=== PATIENT | female | born 1975 | race Caucasian/White ===

== ENCOUNTER → 2021-02-21 14:46 | Outpatient (BNVA) | payer OTHER, SELFPAY | PROVIDERS: PCP Internal Medicine; Referring Provider Internal Medicine; Visit Provider Surgery | DX: K64.5 Perianal venous thrombosis (principal) | CPT/HCPCS: 46600 ==

== ENCOUNTER 2021-02-22 08:11 | Outpatient (REF) | payer OTHER, SELFPAY ==
--- NOTE | ~2021-02-22 | MM_ITS ---
EXAMINATION: MM SCREENING DIGITAL BREAST TOMOSYNTHESIS, BILATERAL CLINICAL INFORMATION: Screening. Asymptomatic. The lifetime risk of breast cancer based on the Tyrer-Cuzick Model is 7%. COMPARISON: Mammography: 03/31/2019, 02/26/2016 TECHNIQUE: Digital breast tomosynthesis is performed in both the craniocaudal and mediolateral oblique views along with computer-aided detection (CAD). Synthesized 2D images are generated from the tomosynthesis. FINDINGS: The breasts are heterogeneously dense, which may obscure small masses (ACR BI-RADS breast composition Category c). There are no significant masses, abnormal calcifications, or other abnormalities. Parenchymal pattern is similar to prior studies. No significant changes. MM/MM tomosynthesis screening BI IMPRESSION: No mammographic evidence of malignancy. ASSESSMENT: BI-RADS 1: Negative RECOMMENDATION: Routine annual mammography screening. This patient's information was entered into a reminder system with a target due date for their next mammogram.
== END 2021-02-22 08:12 | disposition home or self-care (01) ==
LOC: HO.MAMMO 08:11
PROVIDERS: PCP Internal Medicine; Visit Provider Internal Medicine
DX: Z12.31 Encounter for screening mammogram for malignant neoplasm of breast (principal)
CPT/HCPCS: 77063; 77067

== ENCOUNTER 2021-12-26 11:21 | Outpatient (REF) | payer OTHER, SELFPAY ==
[2021-12-26 13:41] LABS: MANUAL DIFF FLAG NO
[2021-12-26 13:53] LABS: Basophils Percent Auto 0.4 % (0-2); Eosinophils Absolute Auto 0.2 X10*3/uL (0.0-0.4); Eosinophils Percent Auto 1.7 % (0-4); Hematocrit 42.3 % (37.0-47.0); Hemoglobin 14.6 g/dl (12.0-16.0); Imm Gran Abs Auto 0.06 X10*3/uL (0.00-0.03); Imm Gran Pct Auto 0.6 % (0.0-0.4); Lymphocytes Absolute Auto 2.4 X10*3/uL (1.2-4.9); Lymphocytes Percent Auto 24.7 % (20-40); Mean Corpuscular HGB Conc 34.5 g/dl (31.0-35.0); Mean Corpuscular Hemoglobin 33.7 pg (27.0-33.0); Mean Corpuscular Volume 97.7 fL (80.0-98.0); Mean Platelet Volume 9.5 fL (9.4-12.3); Monocytes Absolute Auto 0.9 X10*3/uL (0.1-1.2); Monocytes Percent Auto 8.9 % (2-11); Neutrophils Absolute Auto 6.3 x10*3/uL (2.0-8.3); Neutrophils Percent Auto 63.7 % (45-73); Platelet Count 369 X10*3/uL (160-400); Red Blood Count 4.33 X10*6/uL (4.20-5.50); Red Cell Distribution Width 11.5 % (11.0-16.0); White Blood Count 9.9 X10*3/uL (4.8-10.8)
[2021-12-26 14:10] LABS: Alanine Aminotransferase 15 U/L (0-31); Albumin Level 4.3 g/dL (3.5-5.0); Alkaline Phosphatase 58 U/L (39-117); Anion Gap 11 (12-20); Aspartate Amino Transferase 20 U/L (5-31); Bilirubin Total 0.4 mg/dL (0.0-1.0); Blood Urea Nitrogen 12 mg/dL (9-16); Calcium 9.4 mg/dL (8.4-10.2); Carbon Dioxide 28 mmol/L (22-29); Chloride 104 mmol/L (96-108); Estimated Glomerular Filt Rate > 60; Glucose Random 74 mg/dL (60-115); Potassium 4.4 mmol/L (3.3-5.1); Sodium 139 mmol/L (135-145); Total Protein 6.9 g/dL (6.5-8.0)
[2021-12-26 14:22] LABS: TSH reflex Free T4 0.68 uIU/mL (0.32-4.0)
[2021-12-28 06:27] LABS: LDL Cholesterol Direct 54 mg/dL (<100)
== END 2021-12-26 11:22 | disposition home or self-care (01) ==
LOC: HO.HMGCLDS 11:21
PROVIDERS: PCP Internal Medicine; Visit Provider Internal Medicine
DX: Z00.01 Encounter for general adult medical examination with abnormal findings (principal); J45.909 Unspecified asthma, uncomplicated; Z91.09 Other allergy status, other than to drugs and biological substances
CPT/HCPCS: 36415; 80053; 83721; 84443; 85025

== ENCOUNTER 2022-06-04 11:20 | Outpatient (REF) | payer OTHER, SELFPAY ==
--- NOTE | ~2022-06-04 | MM_ITS ---
EXAMINATION: MM SCREENING DIGITAL BREAST TOMOSYNTHESIS, BILATERAL CLINICAL INFORMATION: Screening. Asymptomatic. The lifetime risk of breast cancer based on the Tyrer-Cuzick Model is 7%. COMPARISON: Mammography: 02/22/2021, 03/31/2019 TECHNIQUE: Digital breast tomosynthesis is performed in both the craniocaudal and mediolateral oblique views along with computer-aided detection (CAD). Synthesized 2D images are generated from the tomosynthesis. FINDINGS: The breasts are heterogeneously dense, which may obscure small masses (ACR BI-RADS breast composition Category c). There are no significant masses, abnormal calcifications, or other abnormalities. No developing density or architectural abnormality. Parenchymal pattern is similar to prior studies. The axilla are unremarkable. MM/MM tomosynthesis screening BI IMPRESSION: No mammographic evidence of malignancy. ASSESSMENT: BI-RADS 1: Negative RECOMMENDATION: Routine annual mammography screening. This patient's information was entered into a reminder system with a target due date for their next mammogram.
== END 2022-06-04 11:21 | disposition home or self-care (01) ==
LOC: HO.MAMMO 11:20
PROVIDERS: Visit Provider Internal Medicine
DX: Z12.31 Encounter for screening mammogram for malignant neoplasm of breast (principal)
CPT/HCPCS: 77063; 77067

== ENCOUNTER 2022-07-29 09:07 | Outpatient (REF) | payer OTHER, SELFPAY ==
[2022-07-31 06:23] LABS: HPV mRNA E6/E7 rflx Not Detected (Not Detected)
== END 2022-07-29 09:08 | disposition home or self-care (01) ==
LOC: HO.LNP 09:07
PROVIDERS: PCP Internal Medicine; Visit Provider Advanced Practice Midwife
DX: Z01.419 Encounter for gynecological examination (general) (routine) without abnormal findings (principal); Z79.899 Other long term (current) drug therapy
CPT/HCPCS: 87624; 88142

== ENCOUNTER → 2022-08-14 13:17 | Outpatient (BNVA) | payer OTHER, SELFPAY | PROVIDERS: PCP Internal Medicine; Visit Provider Surgery | DX: Z13.89 Encounter for screening for other disorder (principal) ==

== ENCOUNTER 2024-01-21 10:33 | Outpatient (AMB) | payer OTHER, SELFPAY ==
[2024-01-21 10:35] VITALS: BP 106/70; PULSE 77; O2SAT 100; BMI 22.5
--- NOTE | 2024-01-21 10:35 | A.OFFPC_ITS ---
Vital Signs 01/21/24 10:35 Height 4 ft 11 in Weight 111 lb 4 oz BMI 22.5 BP 106/70 Blood Pressure Location Rt brachial Position Sitting Pulse 77 Pulse Source Pulse Oximeter Pulse Oximetry (%) 100 Oxygen Delivery Method Room Air Intake Visit Reasons: annual PE Allergies acetaminophen [From Vicodin] Allergy (Unknown, Verified 01/21/24 10:36) Stomach Upset environmental allergies Allergy (Unknown, Verified 01/21/24 10:36) Unknown hydrocodone [From Vicodin] Allergy (Unknown, Verified 01/21/24 10:36) Stomach Upset Medication List - Last Reconciled 01/21/24 by Otilio Montgomery MD albuterol sulfate 2.5 mg (3 mL) inhalation TID PRN 90 days albuterol sulfate 90 mcg/actuation 2 puffs inhalation .Q4 PRN 90 days cholecalciferol (vitamin D3) 25 mcg PO DAILY 90 days fexofenadine 180 mg PO DAILY 90 days Tobacco use date assessed: 01/21/24 Dental Screening Dental Screen Date: 01/21/24 Did you have a dental visit in the last 12 months?: Yes Did you have a dental problem in the last 6 months where you did not have access to dental care?: No Was dental information given to patient?: Patient has dentist HPI annual PE HPI Details Patient is a 48-year-old female came in today for physical examination Mammogram will be due May of this year Patient is established with [facility] Colonoscopy declined at this time, patient says that she will think about it. Lab order placed to be done fasting She offer no other complaints today Vital signs stable Allergies are stable She will return next year physical exam. [facility] Medical History Thrombosed external hemorrhoid Environmental allergies Vitamin D deficiency Asthma, moderate Surgical History History of cyst of breast History of bilateral tubal ligation History of section Family History Father Unknown family medical history Mother Diabetes mellitus Alcohol drinking problem Maternal Grandfather Unknown family medical history Maternal Grandmother No problems noted. Paternal Grandfather Unknown family medical history Paternal Grandmother Unknown family medical history Son No problems noted. Son No problems noted. Daughter No problems noted. Social History Housing: Condominium Alcohol intake: current Alcohol intake frequency: 0-2 drinks per day Patient Tobacco Use Status: Former Tobacco user e-Cigarette/Vaping Use: Never Used Second Hand Smoke Exposure: No service: No Current occupational status: employed Cognitive needs: No Hearing needs: No Vision needs: Yes Questionnaire PHQ-9 Over the last 2 weeks, how often have you been bothered by any of the following problems? 1. Little interest or pleasure in doing things: not at all 2. Feeling down, depressed, or hopeless: not at all 3. Trouble falling or staying asleep, or sleeping too much: not at all 4. Feeling tired or having little energy: not at all 5. Poor appetite or overeating: not at all 6. Feeling bad about yourself - or that you are a failure or have let yourself or your family down: not at all 7. Trouble concentrating on things, such as reading the newspaper or watching television: not at all 8. Moving or speaking so slowly that other people could have noticed. Or the opposite - being so fidgety or restless that you have been moving around a lot more than usual: not at all 9. Thoughts that you would be better off or of hurting yourself in some way: not at all Total score: 0 Depression Screening Interpretation: Negative Depression Screening Done: Yes 13470 - PHQ-9 Billing: Yes Source: Developed by Drs. Wayne Earl, Courtney Nunez, Fransisco Harrell and colleagues, with an educational klarissa from [employer]. Thrive Questionnaire Date Thrive assessed: 01/21/24 I am a: Patient What is your living situation today?: I have a steady place to live Within the past 12 months, did the food you bought not last and you didn't have the money to get more?: Never true Within the past 12 months, did you worry whether your food would run out before you got money to buy more?: Never true Do you have trouble paying for medicines?: No Do you have trouble getting transportation to medical appointments?: No Do you have trouble paying your heating and electricity bill?: No Do you have trouble taking care of your child, family member or friend?: No Do you have trouble with day-to-day activities such as bathing, preparing meals, shopping, managing finances, etc.?: No Are you currently unemployed and looking for a job?: No Are you interested in more education?: No Please select the resources that you would like help with: None Currently or been in a relationship where the following occur: No concerns reported THRIVE Score: 0 AUDIT C Alcohol Use Questionnaire (AUDIT-C) 1. How often do you have a drink containing alcohol?: 2-3 times a week 2. How many drinks containing alcohol do you have on a typical day when you are drinking?: 1 or 2 3. How often do you have six or more drinks on one occasion?: Never Total Score: 3 Score Reviewed/Action Taken: Yes YUMI-7 AMB Questionnaire YUMI-7 Date YUMI - 7 assessed: 01/21/24 Feeling nervous, anxious, or on edge: 0 = Not at all Not being able to stop or control worryin = Not at all Worrying too much about different things: 0 = Not at all Trouble relaxin = Not at all Being so restless that it is hard to sit still: 0 = Not at all Becoming easily annoyed or irritable: 0 = Not at all Feeling afraid as if something awful might happen: 0 = Not at all Total YUMI-7 score (0-4 normal; 5-9 mild; 10-14 moderate; 15-21 severe): 0 Source: Developed by Drs. Wayne Earl, Courtney Nunez, Fransisco Harrell and colleagues, with an educational klarissa from [employer]. YUMI-7 Assessment Billing YUMI-7 Assessment Tool: YUMI-7 Assessment 23047 Review of Systems Const Denies chills, Denies fever(s) and Denies headache(s) Eyes Denies blurry vision ENT Denies headache(s), Denies nasal discharge, Denies nasal obstruction, Denies odynophagia and Denies sinus pain Card Denies chest pain at rest and Denies chest pain with activity Resp Denies cough and Denies hemoptysis GI Denies diarrhea, Denies odynophagia, Denies vomiting and Denies hematemesis Reports as per HPI Musc Denies abnormal gait Skin/Breast Reports as per HPI Neuro Denies Neuro-related abnormal movements, Denies Abnormal speech present, Denies abnormal gait, Denies headache(s) and Denies Sensory deficit (Neuro) Psych Denies mood swings and Denies paranoia Endo Reports as per HPI Robert/Lymph Reports as per HPI Aller/Immun Reports as per HPI Physical exam (Primary Care) Vital Signs: Last Vital Signs Pulse 77 01/21/24 10:35 BP 106/70 01/21/24 10:35 Pulse Ox 100 01/21/24 10:35 Oxygen Delivery Method Room Air 01/21/24 10:35 BMI result Body Mass Index 22.5 Tobacco/Smoking Status: Tobacco use Status Tobacco use date assessed 01/21/24 01/21/24 10:38 Patient Tobacco Use Status Former Tobacco user 01/21/24 10:38 e-Cigarette/Vaping Use Never Used 01/21/24 10:38 PHQ-9: PHQ-9 Score PHQ-9: Total score 0 01/21/24 10:41 Depression Screening Interpretation: Negative Thrive Assessment: Date of Thrive Assessment Date Thrive assessed 01/21/24 01/21/24 10:41 Currently or been in a relationship where the following occur: No concerns reported Const General: cooperative, comfortable and no acute distress Orientation/consciousness: patient oriented x3 HENMT Head: Yes normocephalic and Yes atraumatic Eyes General: appearance normal, both eyes and all related structures Pupils: Equal, round and reactive pupils present EOM: EOMs intact bilaterally Neck Neck: Yes supple and No lymphadenopathy Thyroid: Thyroid normal Lymphatic: no lymphadenopathy noted Resp Effort & Inspection: normal respiratory effort and able to speak in complete sentences Auscultation: clear to auscultation bilaterally Cardio Heart sounds: S1 normal heart sound present and S2 normal heart sound present GI Palpation (GI): Soft to palpation and nontender Auscultation: normal bowel sounds General: Yes no CVA tenderness Back/Spine/Pelvis Back: no CVA tenderness Skin General skin exam: elasticity normal and turgor normal Neuro General: patient oriented x3 and gait normal Cranial nerves: Yes Equal, round and reactive pupils present Speech: No Abnormal speech present Sensory Exam: No Sensory deficit (Neuro) Coordination: tandem gait normal and Romberg test negative Extrem General: Yes normal exam except as noted and No edema Assessment and Plan Assessment & Plan (1) Encounter for general adult medical examination without abnormal findings: Code(s): Z00.00 - Encounter for general adult medical examination without abnormal findings (2) Asthma, moderate: Code(s): J45.909 - Unspecified asthma, uncomplicated Qualifiers: Asthma complication type: uncomplicated Asthma persistence: unspecified Qualified Code(s): J45.909 - Unspecified asthma, uncomplicated (3) Vitamin D deficiency: Code(s): E55.9 - Vitamin D deficiency, unspecified (4) Environmental allergies: Code(s): Z91.09 - Other allergy status, other than to drugs and biological substances (5) External hemorrhoids: Code(s): K64.4 - Residual hemorrhoidal skin tags Plan Patient is a 48-year-old female came in today for physical examination Mammogram will be due May of this year Patient is established with [facility] Colonoscopy declined at this time, patient says that she will think about it. Lab order placed to be done fasting She offer no other complaints today Vital signs stable Allergies are stable She will return next year physical exam. Orders: Orders TSH reflex Free T4 Today E55.9 - Vitamin D deficiency, unspecified, J45.909 - Unspecified asthma, uncomplicated, K64.4 - Residual hemorrhoidal skin tags, Z00.00 - Encounter for general adult medical examination without abnormal findings, Z91.09 - Other allergy status, other than to drugs and biological sub stances Complete Blood Count Auto Diff Today E55.9 - Vitamin D deficiency, unspecified, J45.909 - Unspecified asthma, uncomplicated, K64.4 - Residual hemorrhoidal skin tags, Z00.00 - Encounter for general adult medical examination without abnormal findings, Z91.09 - Other allergy status, other than to drugs and biological substances Comprehensive [place]. Panel Fast Today E55.9 - Vitamin D deficiency, unspecified, J45.909 - Unspecified asthma, uncomplicated, K64.4 - Residual hemorrhoidal skin tags, Z00.00 - Encounter for general adult medical examination without abnormal findings, Z91.09 - Other allergy status, other than to drugs and biological substances Lipid Panel Today E55.9 - Vitamin D deficiency, unspecified, J45.909 - Unspecified asthma, uncomplicated, K64.4 - Residual hemorrhoidal skin tags, Z00.00 - Encounter for general adult medical examination without abnormal findings, Z91.09 - Other allergy status, other than to drugs and biological substances Coding Level of Care Code Est Pt Prev Care 40-64y(86686) Diagnoses Encounter for general adult medical examination without abnormal findings Z00.00 Moderate asthma without complication, unspecified whether persistent J45.909 Asthma complication type: uncomplicated Asthma persistence: unspecified Vitamin D deficiency E55.9 Environmental allergies Z91.09 External hemorrhoids K64.4 Additional Codes YUMI-7 Assessment Billing - YUMI-7 Assessment Tool: YUMI-7 Assessment 90623 ([id number])
== END 2024-01-21 11:03 | disposition home or self-care (01) ==
PROVIDERS: PCP Internal Medicine; Visit Provider Internal Medicine
DX: Z00.00 Encounter for general adult medical examination without abnormal findings (principal); J45.909 Unspecified asthma, uncomplicated; E55.9 Vitamin D deficiency, unspecified; Z91.09 Other allergy status, other than to drugs and biological substances; K64.4 Residual hemorrhoidal skin tags
CPT/HCPCS: 99396

== ENCOUNTER 2025-05-26 20:59 | Emergency (ER) | payer OTHER, SELFPAY ==
[2025-05-26 21:20] VITALS: BP 180/94; PULSE 76; RESP 16; TEMP 36.8; O2SAT 96; BMI 22.6
[2025-05-27 00:05] VITALS: BP 145/83; PULSE 72; RESP 18; TEMP 36.6; O2SAT 97
--- NOTE | 2025-05-27 00:55 | ED_ITS ---
HPI - General Adult General Chief complaint: General Medical Stated complaint: General Medical/sent in for Hemorrhoids Time Seen by Provider: 05/27/25 00:07 Source: patient, RN notes reviewed and old records reviewed Mode of arrival: ambulatory Limitations: no limitations History of Present Illness ED Provider: Annalise CHEN narrative: 49-year-old female with a history of hemorrhoids presents for evaluation of what she believes to be hemorrhoids pain She has had rectal pain and a lump by her rectum as she 1st noticed last night. 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 She follows with Dr. Carreno for history of hemorrhoids Denies any fevers, chills. She is not a diabetic Related Data Previous Rx's ?Medication ?Instructions ?Recorded albuterol sulfate 2.5 mg/3 mL 2.5 mg (3 mL) inhalation TID PRN 06/23/20 (0.083 %) solution for nebulization bronchospasm 90 da ys #180 mL cholecalciferol (vitamin D3) 25 25 mcg PO DAILY 90 day s #90 caps 12/24/21 mcg (1,000 unit) capsule albuterol sulfate 90 mcg/actuation 2 puff inhalation . Q4 PRN 11/24/24 aerosol inhaler bronchospasm 90 days #8.5 gr ams fexofenadine 180 mg tablet 180 mg PO DAILY 90 days #90 tabs 11/29/24 hydrocortisone 2.5 % topical cream 1 appl [place] BID 5 day s #30 grams 05/27/25 with perineal applicator (Anusol-HC) Allergies Allergy/AdvReac Type Severity Reaction Status Date / Time acetaminophen (From Vicodin) Allergy Unknown Stomach Verified 05/26/25 21:24 Upset environmental allergies Allergy Unknown Unknown Verified 05/26/25 21:24 hydrocodone (From Vicodin) Allergy Unknown Stomach Verified 05/26/25 21:24 Upset Review of Systems Constitutional: Constitutional: Denies body ache(s), Denies chills and Denies fever(s) ENT: Denies vertigo and Denies dizziness Cardiovascular: Cardiovascular: Denies chest pain Gastrointestinal: Gastrointestinal: Denies abdominal pain, Denies melena and Denies hematochezia Comments: Rectal mass Neurologic: Denies vertigo and Denies dizziness [facility] Past Medical History Medical History Thrombosed external hemorrhoid Environmental allergies Vitamin D deficiency Asthma, moderate Surgical History History of cyst of breast History of bilateral tubal ligation History of section Family History Family History Father Unknown family medical history Mother Diabetes mellitus Alcohol drinking problem Maternal Grandfather Unknown family medical history Maternal Grandmother No problems noted. Paternal Grandfather Unknown family medical history Paternal Grandmother Unknown family medical history Son No problems noted. Son No problems noted. Daughter No problems noted. Social History Social History Housing: Condominium Alcohol intake: current Alcohol intake frequency: 0-2 drinks per day Patient Tobacco Use Status: Former Tobacco user e-Cigarette/Vaping Use: Never Used Second Hand Smoke Exposure: No service: No Current occupational status: employed Cognitive needs: No Hearing needs: No Vision needs: Yes Physical Exam ED Vital Signs: Vital Signs - 24 hr 05/26/25 21:20 05/27/25 00:05 Temperature 98.3 F 97.8 F Pulse Rate 76 72 Respiratory Rate 16 18 Blood Pressure 180/94 H 145/83 H Pulse Oximetry 96 97 Oxygen Delivery Method Room Air Room Air BMI result Body Mass Index 22.6 Const General: healthy appearing, comfortable, no acute distress, alert and awake Nutritional Appearance: well nourished Orientation/consciousness: patient oriented x3 HENMT Head: Yes normocephalic and Yes atraumatic Eyes Eyelids: Yes eyelids normal Conjunctivae: conjunctivae normal Sclerae: sclerae normal Corneas: corneas normal Pupils: Equal, round and reactive pupils present EOM: EOMs intact bilaterally Neck Neck: Yes full ROM Resp Effort & Inspection: normal respiratory effort, able to speak in complete sentences and not labored GI Rectal Exam - Female: External hemorrhoid(s) present (Large thrombosed external hemorrhoid at the 7 o'clock position) Skin General skin exam: elasticity normal Neuro General: patient oriented x3 Cranial nerves: Yes Equal, round and reactive pupils present and Yes Bilaterally intact EOM present Cognition (Neuro): normal cognition Extrem Other: Moving all extremities well without any obvious deformities Procedures Procedure Narrative Procedure Narrative: With female nursing staff, Taya Lozoya present, I cleaned the external hemorrhoid with Betadine, injected 2 cc of 1 percent lidocaine without epinephrine. I am in his small incision to the inferior aspect of the hemorrhoid and using forceps removed a significant amount of clot burden. There was a small amount of subsequent bleeding which resolved within about 10 minutes complications, the patient tolerated the procedure well. Medical Decision Making Medical Decision Making MDM Narrative: Your initial presents for evaluation of rectal mass. She had long history of hemorrhoids and feels like she has a hemorrhoid. She was actually seen at urgent care and sent here for evaluation. On exam she has a pretty obvious large, thrombosed external hemorrhoid. I discussed risks and benefits of attempting incision and drainage. The patient reports that she called her general surgeon I would not be seen for about a month and therefore would like to proceed with the incision and drainage. See procedure note. I was able to remove a significant clot burden with good improvement of the hemorrhoid. We will discharge her with Anusol suppository, MiraLax and she will follow up with your general surgery provider when able Differential Diagnosis Differential Diagnoses: The differential diagnosis associated with the presentation includes External hemorrhoid Thrombosed hemorrhoid Rectal prolapse Perirectal abscess Discharge Plan Discharge Clinical Impression: External hemorrhoid, thrombosed Patient Disposition: Home, Self-Care Instructions: Hemorrhoids (ED) Additional Instructions: You had a large thrombosed hemorrhoid which was opened and drained. A will likely continue to bleed slowly over the next 1-2 days. Use Anusol cream twice daily for 5 days. I recommend using MiraLax for prevent straining with bowel movements. You should also use Epsom salt or Sitz baths Follow up with your general surgeon, call tomorrow to let them know that you came to the hospital to have this drained Prescriptions: New hydrocortisone [Anusol-HC] 2.5 % cream with perineal applicator 1 appl [place] BID 5 Days Qty: 30 0RF No Action cholecalciferol (vitamin D3) 25 mcg (1,000 unit) capsule 25 mcg PO DAILY 90 Days Qty: 90 1RF albuterol sulfate 90 mcg/actuation HFA aerosol inhaler 2 puff inhalation .Q4 PRN (Reason: bronchospasm) 90 Days Qty: 8.5 3RF fexofenadine 180 mg tablet 180 mg PO DAILY 90 Days Qty: 90 0RF albuterol sulfate 2.5 mg /3 mL (0.083 %) solution for nebulization 2.5 mg inhalation TID PRN (Reason: bronchospasm) 90 Days Qty: 180 0RF Referrals: Rory Carreno MD [Physician, General Surgery] Referral Note: thrombosed external hemorrhoid, drained in the emergency department Print Language: Frisian
[2025-05-27 01:16] VITALS: BP 145/83; PULSE 72; RESP 18; TEMP 36.6; O2SAT 97
[2025-05-27] MEDS: Lidocaine HCl 1 % MPF 5 ML VIAL INFILTRATI (01:18)
== END 2025-05-27 01:18 | disposition home or self-care (01) ==
PROVIDERS: Emergency Provider Emergency Medicine Emergency Medical Services; PCP Internal Medicine
DX: K64.5 Perianal venous thrombosis (principal)
CPT/HCPCS: 46083; 99284; J2003

== ENCOUNTER 2025-07-10 21:02 | Emergency (ER) | payer OTHER, SELFPAY ==
[2025-07-10 21:09] VITALS: BP 133/86; PULSE 96; RESP 18; TEMP 36.6; O2SAT 94; BMI 22.6
[2025-07-11] MEDS: Lidocaine HCl 1%/Epi 1:100,000 10 ML VIAL INFILTRATI (01:33)
[2025-07-11] MEDS: Lidocaine/Racepinep/Tetracaine 3 ML GEL.PF.APP TOPICAL (01:33)
--- OUTSIDE RECORDS SUMMARY | 2025-07-11 01:40 | XMS_ITS ---
Author Name [facility] Organization Unknown History of Medication Use Medication Directions Dispensed Refills Start Date End Date Stat us albuterol sulfate 03/22/2024 act kadi Encounters Encounter Type Encounter Reason Primary Diagnosis Location Date Ambulatory TBE [facility] 04/17/2025 Care Team Organization Name Specialty Phone Email Start Date End Da te [facility] 04/[facility] 04[facility]17[facility]2025
--- NOTE | 2025-07-11 02:48 | ED.GENADULT ---
HPI - General Adult General Chief complaint: General Medical Stated complaint: hemorrhoid Time Seen by Provider: 07/11/25 01:10 Source: patient Limitations: no limitations History of Present Illness ED Provider: Anat Gomez PA-C HPI narrative: 49-year-old female presents with thrombosed hemorrhoid. Patient states she has had recurrent hemorrhoids, she is currently pending hemorrhoidectomy, she has a surgical appointment the beginning of July. Associated constipation, patient states she has not using her bowel regimen on a regular basis. Patient notes bright red blood per rectum while trying to pass stool. Denies purulence from the rectum or fever. No abdominal pain, nausea vomiting. Related Data Previous Rx's ?Medication ?Instructions ?Recorded albuterol sulfate 2.5 mg/3 mL 2.5 mg (3 mL) inhalation TID PRN 06/23/20 (0.083 %) solution for nebulization bronchospasm 90 days #180 mL cholecalciferol (vitamin D3) 25 25 mcg PO DAILY 90 days #90 caps 12/24/21 mcg (1,000 unit) capsule albuterol sulfate 90 mcg/actuation 2 puff inhalation .Q4 PRN 11/24/24 aerosol inhaler bronchospasm 90 days #8.5 grams fexofenadine 180 mg tablet 180 mg PO DAILY 90 days #90 tabs 11/29/24 hydrocortisone 2.5 % topical cream 1 appl RI BID 5 days #30 grams 05/27/25 with perineal applicator (Anusol-HC) hydrocortisone 2.5 % topical cream 1 appl RI BID PRN hemorrhoids #30 07/11/25 with perineal applicator grams (Proctosol HC) Allergies Allergy/AdvReac Type Severity Reaction Status Date / Time acetaminophen (From Vicodin) Allergy Unknown Stomach Verified 07/10/25 21:12 Upset environmental allergies Allergy Unknown Unknown Verified 07/10/25 21:12 hydrocodone (From Vicodin) Allergy Unknown Stomach Verified 07/10/25 21:12 Upset Review of Systems Review of Systems: Yes all other systems are reviewed and are negative Constitutional: Constitutional: Denies fatigue and Denies fever(s) Cardiovascular: Cardiovascular: Denies chest pain and Denies dyspnea Respiratory: Respiratory: Denies cough and Denies dyspnea Gastrointestinal: Gastrointestinal: Reports abdominal pain, Reports hematochezia, Reports constipation, Denies nausea and Denies vomiting Genitourinary: Genitourinary: Denies dysuria and Denies flank pain Endocrine: Endocrine: Denies fatigue PMFSH Past Medical History Attestation statement: The following information was validated with the patient. Medical History Thrombosed external hemorrhoid Environmental allergies Vitamin D deficiency Asthma, moderate Surgical History History of cyst of breast History of bilateral tubal ligation History of section Family History Family History Father Unknown family medical history Mother Diabetes mellitus Alcohol drinking problem Maternal Grandfather Unknown family medical history Maternal Grandmother No problems noted. Paternal Grandfather Unknown family medical history Paternal Grandmother Unknown family medical history Son No problems noted. Son No problems noted. Daughter No problems noted. Social History Social History Housing: Condominium Alcohol intake: current Alcohol intake frequency: 0-2 drinks per day Patient Tobacco Use Status: Former Tobacco user e-Cigarette/Vaping Use: Never Used Second Hand Smoke Exposure: No Advance Directives: No Advance Directives Information Provided: No Do you have a plan to hurt others: No Plan service: No Current occupational status: employed Cognitive needs: No Hearing needs: No Vision needs: Yes Physical Exam ED Vital Signs: Vital Signs - 24 hr 07/10/25 21:09 07/11/25 03:05 Temperature 97.8 F 97.8 F Pulse Rate 96 96 Respiratory Rate 18 18 Blood Pressure 133/86 133/86 Pulse Oximetry 94 94 Oxygen Delivery Method Room Air Room Air BMI result Body Mass Index 22.6 Const Other: Alert Orientation/consciousness: patient oriented x3 Resp Effort & Inspection: normal respiratory effort Cardio Other: Normal peripheral perfusion GI Other: Large thrombosed hemorrhoid noted per rectum, smaller non thrombosed external hemorrhoids noted no active bleeding per rectum, no purulence Skin Other: Warm dry no rash Neuro General: patient oriented x3, gait normal, no focal motor deficits and CN's II-XI intact bilaterally Psych Other: Cooperative Medications Administered Discontinued Medications Generic Name Dose Route Start Last Admin Trade Name Freq PRN Reason Stop Dose Admin Lidocaine/Epinephrine 10 ml 07/11/25 01:10 07/11/25 01:33 Lidocaine Hcl 1%/Epi 1:100,000 10 Ml Vial INFILTRATI 07/11/25 01:11 10 ml ONCE ONE Administration Lidocaine/Epinephrine/Tetracaine 3 ml 07/11/25 01:10 07/11/25 01:33 Lidocaine/Racepinep/Tetracaine 3 Ml Gel.Pf.Ramya TOPICAL 07/11/25 01:11 3 ml ONCE ONE Administration Procedures Abscess I/D Site: other (Excision of thrombosed hemorrhoid) Sedation/analgesia: none Local Anesthetic: lidocaine 1%, with epi and other anesthetic (let) Amount of anesthesia used (mL): 3 Technique: incised with blade Amount of fluid expressed (mL): 5 Sent for culture/gram staining?: No Irrigation: No Packing used?: none Medical Decision Making Medical Decision Making [facility] Narrative: 49-year-old female presents with thrombosed hemorrhoid. Patient states she has had recurrent hemorrhoids, she is currently pending hemorrhoidectomy, she has a surgical appointment the beginning of July. Associated constipation, patient states she has not using her bowel regimen on a regular basis. Patient notes bright red blood per rectum while trying to pass stool. Denies purulence from the rectum or fever. No abdominal pain, nausea vomiting. Problem: Recurrent hemorrhoid History: Per patient I have considered the following differential diagnoses: Hemorrhoid, thrombosed hemorrhoid, perirectal abscess, anal fissure Plan: Patient has a thrombosed hemorrhoid, I will excise at bedside. Applying topical let, followed by an injection of lidocaine. We will send with the Anusol. No indication for imaging Differential Diagnosis Differential Diagnoses: The differential diagnosis associated with the presentation includes See [facility] Admission/Observation Consideration of admission/observation: Escalation of care including admission/observation considered Not applicable Discharge Plan Discharge Clinical Impression: External hemorrhoid, thrombosed Patient Disposition: Home, Self-Care Instructions: Hemorrhoids (ED), Sitz Bath (DC) Additional Instructions: You had a thrombosed hemorrhoid that was drained. See home care instructions, which include Sitz baths. Use the Proctosol cream as directed, you can insert the applicator anterior rectum to deposit medication internally as well. Keep your pending appointment with your colorectal surgeon. Prescriptions: New hydrocortisone [Proctosol HC] 2.5 % cream with perineal applicator 1 appl RI BID PRN (Reason: hemorrhoids) Qty: 30 0RF No Action cholecalciferol (vitamin D3) 25 mcg (1,000 unit) capsule 25 mcg PO DAILY 90 Days Qty: 90 1RF albuterol sulfate 90 mcg/actuation HFA aerosol inhaler 2 puff inhalation .Q4 PRN (Reason: bronchospasm) 90 Days Qty: 8.5 3RF fexofenadine 180 mg tablet 180 mg PO DAILY 90 Days Qty: 90 0RF hydrocortisone [Anusol-HC] 2.5 % cream with perineal applicator 1 appl RI BID 5 Days Qty: 30 0RF albuterol sulfate 2.5 mg /3 mL (0.083 %) solution for nebulization 2.5 mg inhalation TID PRN (Reason: bronchospasm) 90 Days Qty: 180 0RF Stand Alone Forms: Work/School Release Interventions: ED Discharge Assessment Last Done: 07/11/25 03:05 Discharge Date/Time: 07/11/25 03:06 Print Language: Ma[place]
[2025-07-11 03:05] VITALS: BP 133/86; PULSE 96; RESP 18; TEMP 36.6; O2SAT 94
== END 2025-07-11 03:06 | disposition home or self-care (01) ==
PROVIDERS: Emergency Provider Emergency Medicine; PCP Internal Medicine
DX: K64.5 Perianal venous thrombosis (principal); K59.00 Constipation, unspecified; Z87.891 Personal history of nicotine dependence
CPT/HCPCS: 46083; 99282; 99284; J2004